=== PATIENT | male | born 1950 | race Caucasian/White ===

== ENCOUNTER → 2024-11-20 09:55 | Outpatient (REF) | payer MEDICARE, OTHER, SELFPAY | LOC: RAD 09:55 | PROVIDERS: ATTENDING PHYSICIAN Internal Medicine Cardiovascular Disease; FAMILY PHYSICIAN Family Medicine | DX: R94.39 Abnormal result of other cardiovascular function study (principal) | CPT/HCPCS: 75574; Q9967 ==